=== PATIENT | female | born 1955 | race African-American/Black ===

== ENCOUNTER 2017-02-25 19:30 | Emergency (ER) | payer MEDICAID, MEDICARE ==
[~2017-02-25] VITALS: Ht 170.2 cm; Wt 76.2 kg
[2017-02-25 20:46] VITALS: BP 135/72
[2017-02-25] MEDS ORDERED: ACETAMINOPHEN 500MG TABLET PO ONE (22:15)
== END 2017-02-26 00:04 | disposition home or self-care (01) ==
LOC: ER 20:43
DX: M25.561 Pain in right knee (principal); M19.90 Unspecified osteoarthritis, unspecified site; F12.10 Cannabis abuse, uncomplicated; Z87.891 Personal history of nicotine dependence; Z88.8 Allergy status to other drugs, medicaments and biological substances; W01.0XXA Fall on same level from slipping, tripping and stumbling without subsequent striking against object, initial encounter; Y93.89 Activity, other specified; Y92.480 Sidewalk as the place of occurrence of the external cause
CPT/HCPCS: 73562; 99284